=== PATIENT | male | born 1970 | race African-American/Black ===

== ENCOUNTER 2024-08-01 21:35 | Emergency (ER) | payer MEDICAID ==
[~2024-08-01] VITALS: Ht 177.8 cm; Wt 87.0 kg
[2024-08-01] MEDS: VISCOUS LIDOCAINE 2% 15 ML UDC MM NR (00:15)
[2024-08-01 22:11] VITALS: O2SAT 100
[2024-08-01] MEDS ORDERED: TRANEXAMIC ACID 1,000MG/10ML IV ONE (22:30)
[2024-08-01] MEDS: HYDRALAZINE 20MG/ML VIAL IV ONE (23:34)
[2024-08-01] MEDS: TRANEXAMIC ACID 1,000MG/10ML TP NR (23:34)
[2024-08-02 00:04] LABS: BASOPHILS % 1.1 % (0.0-2.0); DIFFERENTIAL COMMENT 0; HEMATOCRIT. 46.6 % (42.0-52.0); HEMOGLOBIN. 15.9 g/dL (14.0-18.0); LYMPHOCYTES % 42.9 % (20.0-50.0); MEAN CORPUSCULAR HGB CONC 34.1 g/dL (31.0-37.0); MEAN CORPUSCULAR VOLUME 96.6 fL (80.0-94.0); MEAN PLATELET VOLUME 9.3 fl (7.4-10.4); MONOCYTES % 8.7 % (2.0-8.0); NEUTROPHILS % 45.3 % (40.0-76.0); PLATELET 260 x1000/uL (130-400); RED BLOOD CELL COUNT 4.82 mill/uL (4.7-6.1); RED CELL DISTRIBUTION WIDTH 13.1 % (11.6-14.6); WHITE BLOOD COUNT 4.9 x1000/uL (4.5-11.0)
[2024-08-02 00:05] LABS: PARTIAL THROMBOPLASTIN TIME 27.8 sec (23.4-31.0)
[2024-08-02 00:13] LABS: CHLORIDE 108 mEq/L (98-107); POTASSIUM 3.9 mEq/L (3.5-5.1); SODIUM 142 mEq/L (136-145)
[2024-08-02 00:14] LABS: CALCIUM 9.3 mg/dL (8.7-10.4); CARBON DIOXIDE 28 mEq/L (21-32)
[2024-08-02 00:19] LABS: GLUCOSE 98 mg/dL (70-105); UREA NITROGEN BLOOD 11 mg/dL (9-23)
[2024-08-02 00:21] LABS: TROPONIN I HIGH SENSITIVITY 5 ng/L (3.0-53)
[2024-08-02 03:00] VITALS: BP 141/96; PULSE 83; RESP 14; TEMP 36.78072; O2SAT 98
== END 2024-08-02 03:18 | disposition home or self-care (01) ==
LOC: ER 21:35 → EDBEDREQ 22:41 → ER 08-02 03:18
DX: R04.0 Epistaxis (principal); I10 Essential (primary) hypertension; Z88.0 Allergy status to penicillin
CPT/HCPCS: 99285; 96374; 71045; 80048; 83880; 85025; 85610; 85730; 84484; 36415; 93005; J0360